=== PATIENT | male | born 1965 | race Caucasian/White ===

== ENCOUNTER 2019-11-09 11:48 | Observation (INO) | payer BC, OTHER ==
[~2019-11-09] VITALS: Ht 185.5 cm; Wt 113.5 kg
--- NOTE | 2019-11-09 11:50 | ED General ---
General Stated Complaint: CHEST PAIN History of Present Illness Date Seen by Provider: Nov 09, 2019 Time Seen by Provider: 11:50 Initial Comments Patient presenting to emergency department for evaluation of chest pain that he says has been going on for at least the past 2-3 days as he describes it as a constant ache in the center of his chest that radiates towards the left. He said this morning while he was at work exerting himself he had sudden onset worsening of his pain that he described as a pressure. 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 He says that movements and palpation of his left arm and pectoral region make the pain worse. He says laying still the pain is not that noticeable but it is more of a pressure sensation. He said that he became very diaphoretic and short of breath but no nausea or vomiting. He has a history of hypertension but no diabetes high cholesterol smoking history and he denies any prior cardiac risk stratification to me as he thought he had a stress test 2 years ago but then he told me he was just an EKG. He appears uncomfortable but is nontoxic with slight tachycardia and hypertension noted. Allergies and Home Medications Allergies Coded Allergies: No Known Drug Allergies (Unverified , 11/09/19) Home Medications Lisinopril/Hydrochlorothiazide 1 Each Tablet, 1 TAB PO DAILY, (Reported) Patient Home Medication List Home Medication List Reviewed: Yes Review of Systems Review of Systems Constitutional: diaphoresis EENTM: no symptoms reported Respiratory: short of breath Cardiovascular: chest pain Gastrointestinal: no symptoms reported Genitourinary: no symptoms reported Musculoskeletal: no symptoms reported Skin: no symptoms reported Psychiatric/Neurological: No Symptoms Reported All Other Systems Reviewed Negative Unless Noted: Yes Physical Exam Vital Signs Vital Signs - First Documented Capillary Refill : Height, Weight, BMI Height: '" Weight: lbs. oz. kg; BMI Method: General Appearance: No Apparent Distress, WD/WN HEENT: PERRL/EOMI Neck: Supple Respiratory: Normal Breath Sounds, No Respiratory Distress Cardiovascular: No Edema, Normal Peripheral Pulses, Tachycardia Gastrointestinal: Non Tender, Soft Back: Normal Inspection Extremity: Normal Capillary Refill, No Pedal Edema Neurologic/Psychiatric: Alert, Oriented x3 Skin: Warm/Dry Progress/Results/Core Measures Suspected Sepsis SIRS Temperature: Pulse: Respiratory Rate: Laboratory Tests 11/09/19 12:00: White Blood Count 7.2 Blood Pressure / Mean: Laboratory Tests 11/09/19 12:00: Creatinine 1.24, INR Comment 0.9, Platelet Count 216, Total Bilirubin 0.7 Results/Orders Lab Results Laboratory Tests Test 11/09/19 12:00 Range/Units White Blood Count 7.2 4.3-11.0 10^3/uL Red Blood Count 5.15 4.35-5.85 10^6/uL Hemoglobin 15.9 13.3-17.7 G/DL Hematocrit 47 40-54 % Mean Corpuscular Volume 91 80-99 FL Mean Corpuscular Hemoglobin 31 25-34 PG Mean Corpuscular Hemoglobin Concent 34 32-36 G/DL Red Cell Distribution Width 12.6 10.0-14.5 % Platelet Count 216 130-400 10^3/uL Mean Platelet Volume 10.9 H 7.4-10.4 FL Neutrophils (%) (Auto) 62 42-75 % Lymphocytes (%) (Auto) 24 12-44 % Monocytes (%) (Auto) 11 0-12 % Eosinophils (%) (Auto) 3 0-10 % Basophils (%) (Auto) 1 0-10 % Neutrophils # (Auto) 4.5 1.8-7.8 X 10^3 Lymphocytes # (Auto) 1.7 1.0-4.0 X 10^3 Monocytes # (Auto) 0.8 0.0-1.0 X 10^3 Eosinophils # (Auto) 0.2 0.0-0.3 10^3/uL Basophils # (Auto) 0.1 0.0-0.1 10^3/uL Prothrombin Time 12.7 12.2-14.7 SEC INR Comment 0.9 0.8-1.4 Activated Partial Thromboplast Time 27 24-35 SEC D-Dimer 0.33 0.00-0.49 UG/ML Sodium Level 140 135-145 MMOL/L Potassium Level 4.1 3.6-5.0 MMOL/L Chloride Level 101 98-107 MMOL/L Carbon Dioxide Level 26 21-32 MMOL/L Anion Gap 13 5-14 MMOL/L Blood Urea Nitrogen 22 H 7-18 MG/DL Creatinine 1.24 0.60-1.30 MG/DL Estimat Glomerular Filtration Rate > 60 BUN/Creatinine Ratio 18 Glucose Level 107 H 70-105 MG/DL Calcium Level 9.8 8.5-10.1 MG/DL Corrected Calcium 8.5-10.1 MG/DL Magnesium Level 2.1 1.6-2.4 MG/DL Total Bilirubin 0.7 0.1-1.0 MG/DL Aspartate Amino Transf (AST/SGOT) 69 H 5-34 U/L Alanine Aminotransferase (ALT/SGPT) 67 H 0-55 U/L Alkaline Phosphatase 47 40-136 U/L Troponin I < 0.30 <0.30 NG/ML Pro-B-Type Natriuretic Peptide 131.6 H <75.0 PG/ML Total Protein 7.7 6.4-8.2 GM/DL Albumin 4.6 H 3.2-4.5 GM/DL Lipase 22 8-78 U/L My Orders Orders - GIGI CALVERT DO Cbc With Automated Diff (11/09/19 11:54) Comprehensive Metabolic Panel (11/09/19 11:54) Lipase (11/09/19 11:54) Magnesium (11/09/19 11:54) Partial Thromboplastin Time (11/09/19 11:54) Probnp Fs (11/09/19 11:54) Protime With Inr (11/09/19 11:54) Troponin I Fs (11/09/19 11:54) Chest 1 View Ap/Pa Only (11/09/19 11:54) Ekg Tracing (11/09/19 11:54) Aspirin Chewable Tablet (Baby Aspirin Ch (11/09/19 12:00) Nitroglycerin 0.4 Mg Btl 25's (Nitrostat (11/09/19 12:00) Fibrin Degradation Products (11/09/19 12:08) Ketorolac Injection (Toradol Injection) (11/09/19 12:15) Metoprolol Tartrate Injection (Lopressor (11/09/19 13:00) Metoprolol Tartrate (Ir) Tab (Lopressor (11/09/19 13:00) Medications Given in ED Current Medications Medications Dose Ordered Sig/Adelaida Route Start Time Stop Time Status Last Admin Dose Admin Aspirin 324 mg ONCE ONCE PO 11/09/19 12:00 11/09/19 12:01 DC 11/09/19 12:15 324 MG Ketorolac Tromethamine 15 mg ONCE ONCE IVP 11/09/19 12:15 11/09/19 12:16 DC 11/09/19 12:15 15 MG Metoprolol Tartrate 5 mg ONCE ONCE IV 11/09/19 13:00 11/09/19 13:01 DC 11/09/19 13:00 5 MG Metoprolol Tartrate 25 mg ONCE ONCE PO 11/09/19 13:00 11/09/19 13:01 DC 11/09/19 13:00 25 MG Nitroglycerin 0.4 mg NEEDED PRN SL 11/09/19 12:00 11/09/19 12:44 0.4 MG Vital Signs/I&O 11/09/19 11/09/19 11:48 11:48 Temp 36.8 Pulse 101 Resp 15 B/P (MAP) 172/108 (129) Pulse Ox 98 O2 Delivery Room Air Room Air Capillary Refill : Progress Note : Progress Note The fact that this pain could be exertional makes me somewhat more concern for ACS is the way he describes it as pressure. His EKG shows no obvious ischemic changes however. Will treat him with aspirin nitroglycerin Toradol and observe closely. I discussed case with Dr. Reynolds the project consultant and it is somewhat confusing clinical picture as his pain is worse with movements of his left arm and chest palpation however the pain is more exertional and he said that the pain the last 2 days was not related to any injury or overuse that he was aware of any had no pain with movements of his arm. The nitroglycerin took his chest pain down significantly however he is still having some pain. Patient's heart scores equal to 4. I discussed with patient disposition options including following with the project consultant tomorrow morning versus being admitted to the hospital for further observation troponin trending and cardiology consultation. Patient said he still doesn't feel well and preferred admission to the hospital. I think that this is reasonable given his higher risk score as well as continued hypertension. He was given IV Lopressor as well as oral Lopressor. He was given aspirin here that further anticoagulation will be deferred given his normal troponin. Patient will be transferred to [facility] in stable condition with an accepting physician is Dr. Mariscal. Departure Impression Primary Impression: Chest pain on exertion Additional Impressions: Hypertensive urgency Transaminitis Elevated brain natriuretic peptide (BNP) level Disposition: 09 ADMITTED INPATIENT Condition: Improved GIGI CALVERT DO Nov 09, 2019 11:50
[2019-11-09] MEDS ORDERED: ASPIRIN 81 MG CHEW (CHILDREN'S ASA) PO ONE (12:00)
[2019-11-09] MEDS ORDERED: KETOROLAC 15 MG/ML VIAL IVP ONE (12:15)
[2019-11-09] MEDS: NITROGLYCERIN 0.4 MG SL TABS BTL 25'S SL PRN ×3 (12:15→12:44)
[2019-11-09 12:16] LABS: BASOPHILS # (AUTO) 0.1 10^3/uL (0.0-0.1); BASOPHILS % (AUTO) 1 % (0-10); EOSINOPHILS # (AUTO) 0.2 10^3/uL (0.0-0.3); EOSINOPHILS % (AUTO) 3 % (0-10); HEMATOCRIT 47 % (40-54); HEMOGLOBIN 15.9 G/DL (13.3-17.7); LYMPHOCYTES # (AUTO) 1.7 X 10^3 (1.0-4.0); LYMPHOCYTES % (AUTO) 24 % (12-44); MEAN CORPUSCULAR HEMOGLOBIN 31 PG (25-34); MEAN CORPUSCULAR HGB CONC 34 G/DL (32-36); MEAN CORPUSCULAR VOLUME 91 FL (80-99); MEAN PLATELET VOLUME 10.9 FL (7.4-10.4); MONOCYTES # (AUTO) 0.8 X 10^3 (0.0-1.0); MONOCYTES % (AUTO) 11 % (0-12); NEUTROPHILS # (AUTO) 4.5 X 10^3 (1.8-7.8); NEUTROPHILS % (AUTO) 62 % (42-75); PLATELET COUNT 216 10^3/uL (130-400); RED CELL DISTRIBUTION WIDTH 12.6 % (10.0-14.5); WHITE BLOOD COUNT 7.2 10^3/uL (4.3-11.0)
[2019-11-09] MEDS ORDERED: LISI1TAB25 PO (12:30)
[2019-11-09 12:32] LABS: INR 0.9 (0.8-1.4); PROTHROMBIN TIME PATIENT 12.7 SEC (12.2-14.7)
--- NOTE | 2019-11-09 12:32 | Diagnostic Imaging Report ---
INDICATION: Chest pain FINDINGS: The heart size, mediastinal configuration, and pulmonary vascularity are within normal limits. There is no pleural effusion, pneumothorax, or pneumonia. The osseous structures are unremarkable. IMPRESSION: No acute cardiopulmonary abnormality. Dictated by: Dictated on workstation # [id number]
[2019-11-09 12:43] LABS: BUN/CREATININE RATIO 18; CARBON DIOXIDE 26 MMOL/L (21-32); CHLORIDE 101 MMOL/L (98-107); CREATININE SERUM 1.24 MG/DL (0.60-1.30); GFR ESTIMATED > 60; GLUCOSE 107 MG/DL (70-105); POTASSIUM 4.1 MMOL/L (3.6-5.0); SODIUM 140 MMOL/L (135-145)
[2019-11-09 12:44] LABS: ALANINE AMINOTRANSFERASE 67 U/L (0-55); ALBUMIN 4.6 GM/DL (3.2-4.5); ALKALINE PHOSPHATASE 47 U/L (40-136); BILIRUBIN,TOTAL 0.7 MG/DL (0.1-1.0); CALCIUM 9.8 MG/DL (8.5-10.1); LIPASE 22 U/L (8-78); MAGNESIUM 2.1 MG/DL (1.6-2.4); TOTAL PROTEIN 7.7 GM/DL (6.4-8.2)
[2019-11-09] MEDS ORDERED: meTOprolol TARTRATE 25 MG (LOPRESSOR) TABLET PO ONE (13:00)
[2019-11-09] MEDS ORDERED: meTOprolol 5 MG/5 ML (LOPRESSOR) VIAL IV ONE (13:00)
[2019-11-09] MEDS ORDERED: CATHETER FLUSH 10 ML SYR IV PRN (15:00)
[2019-11-09 15:05] VITALS: BP 166/95
[2019-11-09 16:00] VITALS: BP 160/97
--- NOTE | 2019-11-09 16:30 | Consultation-Cardiology ---
HPI-Cardiology Cardiology Consultation Date of Consultation 11/09/19 Date of Admission Time Seen by Provider: 16:27 Indication: Chest pain HPI 54 years old gentleman with history of hypertension, obesity, has been having chest pain waxing and waning for the last week described it as dull achiness on the left side of his chest not radiating, no associated symptoms of shortness of breath, palpitation, dizziness syncope or near syncopal episode. Was working outside today and started to have worsening pain on the left side. Persistent, came into the emergency room and he was hypertensive, reporting improvement after nitroglycerin. Currently sitting in bed, still having some discomfort appeared to be repaired. By palpating his chest. Home Medications & Allergies Allergies: Coded Allergies: No Known Drug Allergies (Unverified , 11/09/19) Home Medication List Reviewed: Yes [id number] Hx Patient Social History Marital Status: Employed/Student: employed Alcohol Use: Denies Use Recreational Drug Use: No Smoking Status: Never a Smoker 2nd Hand Smoke Exposure: No Recent Foreign Travel: No Recent Infectious Disease Expo: No Recent Hopitalizations: No Immunizations Up To Date Date of Influenza Vaccine: Oct 03, 2019 Past Medical History Discussed below Family Medical History Family History: Patient reports no known family medical history. Review of Systems-General Review of Systems Constitutional: see HPI, diaphoresis EENTM: see HPI, no symptoms reported Respiratory: see HPI; No cough, No dyspnea on exertion, No hemoptysis, No orthopnea, No phlegm; short of breath; No stridor, No wheezing, No other Cardiovascular: see HPI, chest pain; No edema, No Hx of Intervention, No palpitations, No syncope, No vascular heart diseas, No other Gastrointestinal: no symptoms reported, see HPI Genitourinary: no symptoms reported, see HPI Musculoskeletal: see HPI, joint pain Skin: no symptoms reported, see HPI Psychiatric/Neurological: No Symptoms Reported, See HPI All Other Systems Reviewed Negative Unless Noted: Yes Reviewed Test Results Reviewed Test Results Lab Laboratory Tests Test 11/09/19 12:00 11/09/19 15:10 Range/Units White Blood Count 7.2 4.3-11.0 10^3/uL Red Blood Count 5.15 4.35-5.85 10^6/uL Hemoglobin 15.9 13.3-17.7 G/DL Hematocrit 47 40-54 % Mean Corpuscular Volume 91 80-99 FL Mean Corpuscular Hemoglobin 31 25-34 PG Mean Corpuscular Hemoglobin Concent 34 32-36 G/DL Red Cell Distribution Width 12.6 10.0-14.5 % Platelet Count 216 130-400 10^3/uL Mean Platelet Volume 10.9 H 7.4-10.4 FL Neutrophils (%) (Auto) 62 42-75 % Lymphocytes (%) (Auto) 24 12-44 % Monocytes (%) (Auto) 11 0-12 % Eosinophils (%) (Auto) 3 0-10 % Basophils (%) (Auto) 1 0-10 % Neutrophils # (Auto) 4.5 1.8-7.8 X 10^3 Lymphocytes # (Auto) 1.7 1.0-4.0 X 10^3 Monocytes # (Auto) 0.8 0.0-1.0 X 10^3 Eosinophils # (Auto) 0.2 0.0-0.3 10^3/uL Basophils # (Auto) 0.1 0.0-0.1 10^3/uL Prothrombin Time 12.7 12.2-14.7 SEC INR Comment 0.9 0.8-1.4 Activated Partial Thromboplast Time 27 24-35 SEC D-Dimer 0.33 0.00-0.49 UG/ML Sodium Level 140 135-145 MMOL/L Potassium Level 4.1 3.6-5.0 MMOL/L Chloride Level 101 98-107 MMOL/L Carbon Dioxide Level 26 21-32 MMOL/L Anion Gap 13 5-14 MMOL/L Blood Urea Nitrogen 22 H 7-18 MG/DL Creatinine 1.24 0.60-1.30 MG/DL Estimat Glomerular Filtration Rate > 60 BUN/Creatinine Ratio 18 Glucose Level 107 H 70-105 MG/DL Calcium Level 9.8 8.5-10.1 MG/DL Corrected Calcium 8.5-10.1 MG/DL Magnesium Level 2.1 1.6-2.4 MG/DL Total Bilirubin 0.7 0.1-1.0 MG/DL Aspartate Amino Transf (AST/SGOT) 69 H 5-34 U/L Alanine Aminotransferase (ALT/SGPT) 67 H 0-55 U/L Alkaline Phosphatase 47 40-136 U/L Troponin I < 0.30 < 0.028 <0.028 NG/ML Pro-B-Type Natriuretic Peptide 131.6 H <75.0 PG/ML Total Protein 7.7 6.4-8.2 GM/DL Albumin 4.6 H 3.2-4.5 GM/DL Lipase 22 8-78 U/L Physical Exam Physical Exam Vital Signs Vital Signs - First Documented Capillary Refill : Less Than 3 Seconds Height, Weight, BMI Height: '" Weight: lbs. oz. kg; 32.98 BMI Method: General Appearance: No Apparent Distress, WD/WN Eyes: Bilateral Eye Normal Inspection, Bilateral Eye PERRL, Bilateral Eye EOMI HEENT: PERRL/EOMI Neck: Supple Respiratory: Normal Breath Sounds, No Respiratory Distress Cardiovascular: No Edema, Normal Peripheral Pulses, Tachycardia Gastrointestinal: Non Tender, Soft Back: Normal Inspection Extremity: Normal Capillary Refill, No Pedal Edema Neurologic/Psychiatric: Alert, Oriented x3 Skin: Warm/Dry Lymphatic: No Adenopathy A/P-Cardiology Admission Diagnosis Hypertension Elevated liver enzymes Chest pain GERD Assessment/Plan Chest pain nonspecific etiology, appeared to be her produce of bone but responsive to nitroglycerin, EKG and cardiac enzymes did not show any acute abnormality, I will continue monitoring overnight and planning to evaluate stress test tomorrow morning if his cardiac enzymes continue to be negative. Hypertension, restart home medication monitor blood pressure Obesity, discussed weight loss and exercise Alcoholism, patient drinks daily about 6 packs of beer, educated on avoiding alcohol History of gouty arthritis. Continue to monitor Mild elevation in liver enzymes. Continue to monitor Questionable hyperlipidemia I will evaluate lipid profile. Family history of elevated liver enzymes Clinical Quality Measures AMI/AHF: ASA po Prior to arrival: No DVT/VTE Risk/Contraindication: Risk Factor Score Per Nursin RFS Level Per Nursing on Admit: 2=Moderate DERICK GONZALEZ MD Nov 09, 2019 16:30
[2019-11-09 20:44] VITALS: BP 147/82
[2019-11-09] MEDS: CATHETER FLUSH 10 ML SYR IV SCH (22:06)
[2019-11-09 23:30] VITALS: BP 132/77
[2019-11-10 04:50] VITALS: BP 128/82
[2019-11-10 05:16] LABS: BASOPHILS % (AUTO) 1 % (0-10); EOSINOPHILS # (AUTO) 0.3 10^3/uL (0.0-0.3); EOSINOPHILS % (AUTO) 4 % (0-10); HEMATOCRIT 45 % (40-54); HEMOGLOBIN 14.9 G/DL (13.3-17.7); LYMPHOCYTES # (AUTO) 2.6 X 10^3 (1.0-4.0); LYMPHOCYTES % (AUTO) 36 % (12-44); MEAN CORPUSCULAR HEMOGLOBIN 30 PG (25-34); MEAN CORPUSCULAR HGB CONC 33 G/DL (32-36); MEAN CORPUSCULAR VOLUME 92 FL (80-99); MEAN PLATELET VOLUME 11.5 FL (7.4-10.4); MONOCYTES # (AUTO) 0.8 X 10^3 (0.0-1.0); MONOCYTES % (AUTO) 12 % (0-12); NEUTROPHILS # (AUTO) 3.4 X 10^3 (1.8-7.8); NEUTROPHILS % (AUTO) 48 % (42-75); PLATELET COUNT 197 10^3/uL (130-400); RED CELL DISTRIBUTION WIDTH 13.3 % (10.0-14.5); WHITE BLOOD COUNT 7.2 10^3/uL (4.3-11.0)
[2019-11-10 05:48] LABS: ALANINE AMINOTRANSFERASE 64 U/L (0-55); ALBUMIN 3.9 GM/DL (3.2-4.5); ALKALINE PHOSPHATASE 41 U/L (40-136); BILIRUBIN,TOTAL 0.7 MG/DL (0.1-1.0); BUN/CREATININE RATIO 22; CALCIUM 9.1 MG/DL (8.5-10.1); CARBON DIOXIDE 22 MMOL/L (21-32); CHLORIDE 103 MMOL/L (98-107); CREATININE SERUM 1.19 MG/DL (0.60-1.30); GFR ESTIMATED > 60; GLUCOSE 79 MG/DL (70-105); POTASSIUM 3.8 MMOL/L (3.6-5.0); SODIUM 139 MMOL/L (135-145); TOTAL PROTEIN 6.7 GM/DL (6.4-8.2); TRIGLYCERIDES 105 MG/DL (<150)
[2019-11-10 05:49] LABS: CHOLESTEROL 179 MG/DL (< 200); HDL CHOLESTEROL 55 MG/DL (40-60); VLDL CHOLESTEROL 21 MG/DL (5-40)
[2019-11-10] MEDS: CATHETER FLUSH 10 ML SYR IV SCH (06:00)
[2019-11-10 07:57] VITALS: BP 145/83
[2019-11-10 08:00] VITALS: BP 163/95
[2019-11-10 08:03] VITALS: BP 193/86
[2019-11-10 08:04] VITALS: BP 213/83
--- NOTE | 2019-11-10 08:40 | Cardiology Progress Note ---
Subjective Date Seen by Provider: Nov 10, 2019 Time Seen by Provider: 07:50 Subjective/Events-last exam Patient down in heart center for stress test, reports CP earlier this morning. Review of Systems General: No Chills, No Night Sweats, No Fatigue, No Malaise, No Appetite, No Other HEENT: No Head Aches, No Visual Changes, No Eye Pain, No Ear Pain, No Dysphasia, No Sinus Congestion, No Post Nasal Drip, No Sore Throat, No Other Pulmonary: No Dyspnea, No Cough, No Pleuritic Chest Pain, No Other Cardiovascular: No: Chest Pain, Palpitations, Orthopnea, Paroxysmal Noc. Dyspnea, Edema, Lt Headedness, Other Objective-Cardiology Exam Last Set of Vital Signs Vital Signs 11/10/19 11/10/19 11/10/19 04:50 07:57 08:00 Temp 35.6 Pulse 69 Resp 18 B/P (MAP) 145/83 (103) Pulse Ox 98 O2 Delivery Room Air Capillary Refill : Less Than 3 Seconds I&O Intake and Output 11/10/19 00:00 Intake Total 1420 ml Output Total 200 ml Balance 1220 ml Intake Oral 1420 ml Output Urine Total 200 ml Daily Weight Change No General: Alert, Oriented X3, Cooperative HEENT: Atraumatic, PERRLA Neck: Supple, No JVD, No Thyromegaly Lungs: Clear to Auscultation, Normal Air Movement Heart: Regular Rate, Normal S1, Normal S2, No Murmurs Abdomen: Normal Bowel Sounds, Soft, No Tenderness, No Hepatosplenomegaly, No Masses Extremities: No Clubbing, No Cyanosis, No Edema, Normal Pulses, No Tenderness/Swelling Skin: No Rashes, No Breakdown, No Significant Lesion Neuro: Normal Gait, Normal Speech, Strength at 5/5 X4 Ext, Normal Tone, Sensation Intact Psych/Mental Status: Mental Status NL, Mood NL Results Lab Laboratory Tests 11/09/19 12:00 11/10/19 04:01 A/P-Cardiology Admission Diagnosis Hypertension Elevated liver enzymes Chest pain GERD Assessment/Plan Chest pain nonspecific etiology, reproducible stress test was done today, showing no significant ischemia or infarction, unlikely to be cardiac in nature. Hypertension, restart home medication monitor blood pressure Obesity, discussed weight loss and exercise Alcoholism, patient drinks daily about 6 packs of beer, educated on avoiding alcohol History of gouty arthritis. Continue to monitor Mild elevation in liver enzymes. Continue to monitor Hyperlipidemia, mildly elevated LDL, continue to monitor as outpatient. Family history of elevated liver enzymes Patient was seen and evaluated with Carmelita, examination performed, management plan was discussed, agree with the current scribed note, I made few changes to the note using Italic font Patient still having reproducible chest pain, no palpitation, no syncope. Lungs were clear to auscultation, heart is regular Stress test did not show any ischemia or infarction Discussed the management plan with leonidas Hernadez for discharge and follow-up as an outpatient, continue on his current antihypertensive medication Clinical Quality Measures AMI/AHF: ASA po Prior to arrival: No DVT/VTE Risk/Contraindication: Risk Factor Score Per Nursin RFS Level Per Nursing on Admit: 2=Moderate Supervisory-Addendum Brief Supervisory Addendum Participated in pt care: history, MDM, physical Personally performed: exam, history, MDM Care discussed with: CARMELITA LANGFORD Nov 10, 2019 08:40 DERICK GONZALEZ MD Nov 10, 2019 09:05
[2019-11-10] MEDS ORDERED: ASPIRIN E.C. 81 MG (ECOTRIN) TAB PO SCH (09:00)
[2019-11-10] MEDS ORDERED: PANTOPRAZOLE 40 MG (PROTONIX) TAB PO SCH (09:00)
--- NOTE | 2019-11-10 09:36 | Discharge Instructions ---
Discharge Inst-[facility] Discharge Medications Continued Medications: Lisinopril/Hydrochlorothiazide (Lisinopril-Hctz 20-12.5 mg Tab) 1 Each Tablet 1 TAB PO DAILY, TAB Patient Instructions Goal/Follow Up Appt: Follow up with Dr. Reynolds in 2 weeks Follow up at [facility] with Dr. Moreira on 11/15 at 9:45 am. Return to The Hospital For: Fever, difficulty breathing Activity & Diet Discharge Diet: Cardiac Diet Activity as Tolerated: Yes HEENA CHAND MD Nov 10, 2019 09:36
--- NOTE | 2019-11-10 09:37 | Short Stay Summary ---
HPI History of Present Illness: Starting around this Thursday had some pain in left chest, yesterday had to do some heavy lifting and it got a lot worse. Pain is down to 2/10 today. He does have a history of high blood pressure, is a non-smoker. Denies family history of heart disease, his paternal grandfather had a "little bit" of heart issue, he took nitro. States over last 3 weeks has had some cough and subjective fever has "had what everyone else has had". Denies shortness of breath, numbness or tingling. Source: patient Date seen by provider: Nov 10, 2019 Time Seen by Provider: 10:37 Attending Physician Heena Mariscal MD PCP SelfSanket MD Consult Date of Admission Nov 09, 2019 at 13:27 Home Medications Home Medications Reviewed patient Home Medication Reconciliation performed by pharmacy medication reconciliations life science technician and/or nursing. Patients Allergies have been reviewed. Allergies Coded Allergies: No Known Drug Allergies (Unverified , 11/09/19) [id number] Hx Patient Social History Marrital Status: Employed/Student: employed Alcohol Use: Regular Use (4-6 beers or 2 mixed drinks daily) Recreational Drug Use: No Smoking Status: Never a Smoker 2nd Hand Smoke Exposure: No Recent Foreign Travel: No Contact w/other who traveled: No Recent Hopitalizations: No Recent Infectious Disease Expo: No Immunizations Up To Date Date of Influenza Vaccine: Oct 03, 2019 Past Medical History PMHx: HTN Gout SurgHx: Denies Family Medical History Family History: Patient reports no known family medical history. Review of Systems ([facility]) Constitutional: see HPI EENTM: nose congestion, throat pain Respiratory: cough Cardiovascular: see HPI Gastrointestinal: No abdominal pain, No constipation, No diarrhea, No nausea, No vomiting Genitourinary: No dysuria Musculoskeletal: No joint pain Skin: No rash Psychiatric/Neurological: Denies Anxiety, Denies Depressed Reviewed Test Results Reviewed Test Results Lab Laboratory Tests Test 11/09/19 12:00 11/09/19 15:10 11/10/19 04:01 Range/Units White Blood Count 7.2 7.2 4.3-11.0 10^3/uL Red Blood Count 5.15 4.91 4.35-5.85 10^6/uL Hemoglobin 15.9 14.9 13.3-17.7 G/DL Hematocrit 47 45 40-54 % Mean Corpuscular Volume 91 92 80-99 FL Mean Corpuscular Hemoglobin 31 30 25-34 PG Mean Corpuscular Hemoglobin Concent 34 33 32-36 G/DL Red Cell Distribution Width 12.6 13.3 10.0-14.5 % Platelet Count 216 197 130-400 10^3/uL Mean Platelet Volume 10.9 H 11.5 H 7.4-10.4 FL Neutrophils (%) (Auto) 62 48 42-75 % Lymphocytes (%) (Auto) 24 36 12-44 % Monocytes (%) (Auto) 11 12 0-12 % Eosinophils (%) (Auto) 3 4 0-10 % Basophils (%) (Auto) 1 1 0-10 % Neutrophils # (Auto) 4.5 3.4 1.8-7.8 X 10^3 Lymphocytes # (Auto) 1.7 2.6 1.0-4.0 X 10^3 Monocytes # (Auto) 0.8 0.8 0.0-1.0 X 10^3 Eosinophils # (Auto) 0.2 0.3 0.0-0.3 10^3/uL Basophils # (Auto) 0.1 0.0 0.0-0.1 10^3/uL Prothrombin Time 12.7 12.2-14.7 SEC INR Comment 0.9 0.8-1.4 Activated Partial Thromboplast Time 27 24-35 SEC D-Dimer 0.33 0.00-0.49 UG/ML Sodium Level 140 139 135-145 MMOL/L Potassium Level 4.1 3.8 3.6-5.0 MMOL/L Chloride Level 101 103 98-107 MMOL/L Carbon Dioxide Level 26 22 21-32 MMOL/L Anion Gap 13 14 5-14 MMOL/L Blood Urea Nitrogen 22 H 26 H 7-18 MG/DL Creatinine 1.24 1.19 0.60-1.30 MG/DL Estimat Glomerular Filtration Rate > 60 > 60 BUN/Creatinine Ratio 18 22 Glucose Level 107 H 79 70-105 MG/DL Calcium Level 9.8 9.1 8.5-10.1 MG/DL Corrected Calcium 9.2 8.5-10.1 MG/DL Magnesium Level 2.1 1.6-2.4 MG/DL Total Bilirubin 0.7 0.7 0.1-1.0 MG/DL Aspartate Amino Transf (AST/SGOT) 69 H 50 H 5-34 U/L Alanine Aminotransferase (ALT/SGPT) 67 H 64 H 0-55 U/L Alkaline Phosphatase 47 41 40-136 U/L Troponin I < 0.30 < 0.028 < 0.028 <0.028 NG/ML Pro-B-Type Natriuretic Peptide 131.6 H <75.0 PG/ML Total Protein 7.7 6.7 6.4-8.2 GM/DL Albumin 4.6 H 3.9 3.2-4.5 GM/DL Lipase 22 8-78 U/L Triglycerides Level 105 <150 MG/DL Cholesterol Level 179 < 200 MG/DL LDL Cholesterol Direct 115 1-129 MG/DL VLDL Cholesterol 21 5-40 MG/DL HDL Cholesterol 55 40-60 MG/DL Physical Exam-([facility]) Physical Exam Vital Signs VS - Last 72 Hours, by Label 11/09/19 11/09/19 11/09/19 11/09/19 11:48 11:48 15:04 15:05 Temp 36.8 36.2 Pulse 101 60 56 Resp 15 20 B/P (MAP) 172/108 (129) 166/95 Pulse Ox 98 98 O2 Delivery Room Air Room Air Room Air 11/09/19 11/09/19 11/09/19 11/09/19 15:48 16:00 19:00 20:00 Temp 36.5 Pulse 55 62 Resp 20 B/P (MAP) 160/97 (118) Pulse Ox 98 97 97 O2 Delivery Room Air Room Air Room Air 11/09/19 11/09/19 11/10/19 11/10/19 20:44 23:30 01:00 04:50 Temp 36.7 36.0 35.6 Pulse 61 57 60 52 Resp 20 20 18 B/P (MAP) 147/82 (103) 132/77 (95) 128/82 (97) Pulse Ox 97 97 97 O2 Delivery Room Air Room Air Room Air 11/10/19 11/10/19 11/10/19 11/10/19 07:00 07:57 08:00 08:00 Temp 36.0 Pulse 51 69 71 Resp 18 20 B/P (MAP) 145/83 (103) 163/95 (117) Pulse Ox 98 98 95 O2 Delivery Room Air Room Air Room Air Capillary Refill : NONE General Appearance: WD/WN, no apparent distress Respiratory: lungs clear, normal breath sounds Cardiovascular: regular rate, rhythm, no murmur Gastrointestinal: normal bowel sounds, non tender, soft Neurologic/Psychiatric: alert, normal mood/affect Skin: normal color, warm/dry Short Stay Diagnosis Discharge Diagnosis-Short Stay Admission Diagnosis Chest pain Final Discharge Diagnosis Chest pain not of cardiac origin Conclusion Plan See problem list Was the Problem List Reviewed?: Yes Clinical Quality Measures AMI/AHF: ASA po Prior to arrival: No DVT/VTE Risk/Contraindication: Risk Factor Score Per Nursin RFS Level Per Nursing on Admit: 2=Moderate Copy Copies To 1: SANKET KOHLI MD Assessment/Plan Assessment/Plan Admission Status: Observation (1) Chest pain on exertion Status: Acute Assessment & Plan: Troponin negative, stress test Dr. Gail lauren recommends outpatient follow up in 2 weeks. (2) Transaminitis Status: Acute Assessment & Plan: Report known history, has been directed to decrease alcohol intake, reinforced that and recommend continued outpatient follow up. (3) Hyperlipidemia Status: Chronic Assessment & Plan: ACC/AHA risk calculator gives 10 year risk of 3.6% for cardiovascular event, no indication for statin at this time. HEENA MARISCAL MD Nov 10, 2019 09:37
--- NOTE | 2019-11-14 20:00 | STRESS TEST ---
DATE OF SERVICE: 11/10/2019 EXERCISE MYOVIEW STRESS TEST REPORT REFERRING PHYSICIAN: . Baseline heart rate is 65, baseline blood pressure 149/82. Baseline EKG is sinus rhythm with no ischemic changes. In summary, the patient was injected with 10.25 mCi of technetium-99 Myoview and the resting images were obtained. Then, the patient started exercising with a baseline heart rate, blood pressure and EKG mentioned above. He was able to exercise for a total of 5 minutes 30 seconds on standard Chet protocol. With peak exercise level, EKG was showing minimal nondiagnostic changes. Blood pressure was 213/83. During recovery, heart rate and blood pressure returned to baseline. EKG returned to baseline. The resting and stress images were reviewed and compared in the short axis, horizontal long axis and vertical long axis views. Review of the images showed good radiotracer uptake with no significant ischemia or infarction. SSS is 1, SDS 1, TID value 1.0. On the gated images, the left ventricle appeared to be in normal size with normal contractility. Calculated ejection fraction is 63%. CONCLUSION: 1. Fair exercise tolerance, a total of 5 minutes 30 seconds on standard Chet protocol, total of 7.1 METS achieving 91% of maximum expected heart rate. 2. Severe hypertensive response to exercise with peak blood pressure 213/83, returned to baseline during recovery. 3. Minimal nondiagnostic EKG changes with exercise returned to baseline during recovery. 4. No ischemia or infarction on SPECT images. 5. Normal left ventricular size with normal contractility. Calculated ejection fraction of 63%. 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
== END 2019-11-10 11:30 | disposition home or self-care (01) ==
LOC: ER FS 11:50 → 4TH 13:27
PROVIDERS: ADMIT Family Medicine; ATTEND Family Medicine
DX: R07.89 Other chest pain (principal); I16.0 Hypertensive urgency; R74.0 Nonspecific elevation of levels of transaminase and lactic acid dehydrogenase [LDH]; R79.0 Abnormal level of blood mineral; E78.5 Hyperlipidemia, unspecified; E66.9 Obesity, unspecified; K21.9 Gastro-esophageal reflux disease without esophagitis; M10.9 Gout, unspecified; Z79.899 Other long term (current) drug therapy; Z68.33 Body mass index [BMI] 33.0-33.9, adult
CPT/HCPCS: 36415; 71045; 78452; 80053; 80061; 83690; 83735; 83880; 84484; 85025; 85027; 85379; 85610; 85730; 93017; 93306; 96374; 96375; G0378